=== PATIENT | male | born 1985 | race Caucasian/White ===

== ENCOUNTER 2020-07-10 21:16 | Emergency (ER) | payer OTHER, BC, SELFPAY ==
[2020-07-10 21:27] VITALS: BP 138/88; PULSE 102; RESP 18; TEMP 36.2; O2SAT 100
[2020-07-10 22:41] VITALS: BP 131/92; PULSE 79; RESP 16; TEMP 36.7; O2SAT 99
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
[2020-07-10 23:50] VITALS: BP 130/85; PULSE 88; RESP 16; O2SAT 100
== END 2020-07-10 23:50 | disposition home or self-care (01) ==
PROVIDERS: Emergency Provider Emergency Medicine
DX: S29.012A Strain of muscle and tendon of back wall of thorax, initial encounter (principal); V43.62XA Car passenger injured in collision with other type car in traffic accident, initial encounter
CPT/HCPCS: 99283